=== PATIENT | male | born 1950 | race Caucasian/White ===

== ENCOUNTER → 2017-12-27 16:19 | Outpatient (CLI) | payer MEDICARE, OTHER, SELFPAY | PROVIDERS: Family Provider Family Medicine; PCP Family Medicine; Visit Provider Otolaryngology Otolaryngology/Facial Plastic Surgery | DX: J32.9 Chronic sinusitis, unspecified (principal) | CPT/HCPCS: 87070; 87077; 87186; 87205 ==

== ENCOUNTER → 2017-12-28 19:17 | Outpatient (CLI) | payer MEDICARE, OTHER, SELFPAY | PROVIDERS: Family Provider Family Medicine; PCP Family Medicine; Visit Provider Otolaryngology Otolaryngology/Facial Plastic Surgery | DX: R05 Cough (principal) | CPT/HCPCS: 87070; 87205 ==

== ENCOUNTER → 2018-01-10 16:26 | Outpatient (CLI) | payer MEDICARE, OTHER, SELFPAY | PROVIDERS: Family Provider Family Medicine; PCP Family Medicine; Visit Provider Otolaryngology Otolaryngology/Facial Plastic Surgery | DX: J32.9 Chronic sinusitis, unspecified (principal) | CPT/HCPCS: 87070; 87077; 87186; 87205 ==

== ENCOUNTER → 2018-01-18 06:50 | Outpatient (CLI) | payer MEDICARE, OTHER, SELFPAY ==
--- NOTE | 2018-01-18 06:53 | CT_ITS ---
STUDY: CT MAXILLOFACIAL SINUSES REASON FOR EXAM: Male, 67 years old. History of sinusitis. RADIATION DOSAGE (If Supplied By Facility): CTDIvol = ( 29.36 ) mGy, DLP = ( 459.30 ) mGycm TECHNIQUE: The patient was scanned in a multi detector CT scanner. High resolution axial imaging was performed without the administration of intravenous contrast material. Sagittal and coronal images were reconstructed. Individualized dose optimization techniques were used for this CT. COMPARISON: Comparison is made with prior examination dated January 23, 2014. FINDINGS: FRONTAL SINUSES: Normal aeration, without mucosal inflammatory disease. ETHMOIDAL SINUSES: Normal aeration, without mucosal inflammatory disease. MAXILLARY SINUSES: Normal aeration, without mucosal inflammatory disease. SPHENOIDAL SINUSES: Normal aeration, without mucosal inflammatory disease. There is patency of the bilateral maxillary infundibuli with normal uncinate processes, ethmoid bullae, and hiatus semilunaris. Normal bilateral middle turbinates. Normal bilateral inferior turbinates. Normal midline nasal septum. There is patency of the bilateral nasal airways. The visualized osseous structures are normal. The visualized bilateral orbital contents are normal. CT/Sinus/Facial Bone IMPRESSION: Normal CT examination of the maxillofacial sinuses. Electronically Signed: Edy Cohen MD at 15:28 EST Tel [phone], Service support ,
== END ==
PROVIDERS: Family Provider Family Medicine; PCP Family Medicine; Visit Provider Otolaryngology Otolaryngology/Facial Plastic Surgery
DX: J32.9 Chronic sinusitis, unspecified (principal)
CPT/HCPCS: 70486

== ENCOUNTER → 2018-03-02 13:07 | Outpatient (CLI) | payer MEDICARE, OTHER, SELFPAY ==
--- NOTE | 2018-03-02 13:08 | ECHOD_ITS ---
Reason For Study: CAD Procedure This was a 2D Doppler, Color Flow transthoracic echocardiogram. Exam performed in department. Left Ventricle Normal size and thickness. The estimated ejection fraction is 65 %. Septal motion consistent with IVCD. Stage 1 diastolic dysfunction. No regional wall motion abnormalities noted. Right Ventricle Normal size and thickness. Normal systolic function. Atria Normal left atrium. Normal right atrium. Normal atrial septum. Bubble contrast study negative for right to left interatrial shunt. Mitral Valve The mitral valve is structurally normal. No prolapse or stenosis seen. Tricuspid Valve Normal tricuspid valve. Trivial tricuspid valve insufficiency. Right ventricular systolic pressure estimated to be 17 mmHg. Aortic Valve Trisinus/trileaflet aortic valve. Mild focal aortic valve thickening. Mild restriction of the aortic valve. Mild aortic stenosis. Peak aortic valve gradient 23 mmHg. Mean aortic valve gradient 13 mmHg. Calculated aortic valve area (continuity equation) is 1.6 cm2. Trivial aortic valve insufficiency. Pulmonic Valve Normal pulmonic valve. Great Vessels Normal aortic root. Normal arch. Normal inferior vena cava. Inferior vena cava collapse with sniff. Pericardium/Pleural No pericardial effusion. Medication 22 gauge I.V. with prn adaptor inserted into right arm. Performed a rapid injection of agitated mix of 9 cc saline and 1cc air to assess for atrial septal defect. MMode/2D Measurements & Calculations LVIDd: 4.7 cm IVSd: 1.1 cm LVOT diam: 2.2 cm LVIDs: 3.0 cm LVPWd: 1.1 cm LVOT area: 3.9 cm2 RVDd: 3.8 cm FS: 35.7 % Ao root diam: 3.9 cm LAV(MOD-bp): 44.6 ml LA A4 area: 14.7 cm2 LAV(MOD-bp) Indexed: 22.0 ml/m2 LAV(MOD-sp2): 41.8 ml LAV(MOD-sp4): 40.7 ml RA A4 area: 14.9 cm2 Doppler Measurements & Calculations MV E max vince: 74.8 cm/sec Lat Peak E' Vince: 7.0 cm/sec Med Peak E' Vince: 4.7 cm/sec MV A max vince: 98.6 cm/sec E/E' lat: 10.7 E/E' med: 15.9 MV E/A: 0.76 Ao V2 max: 237.9 cm/sec LV V1 max: 89.9 cm/sec SV(LVOT): 87.0 ml Ao max P.7 mmHg LV V1 max P.2 mmHg Ao V2 mean: 169.5 cm/sec LV V1 mean P.6 mmHg Ao mean P.7 mmHg LV V1 mean: 58.8 cm/sec Ao V2 VTI: 50.4 cm LV V1 VTI: 22.2 cm KRYSTA(I,D): 1.7 cm2 KRYSTA(V,D): 1.5 cm2 TR max vince: 164.0 cm/sec TR max P.8 mmHg Interpretation Summary The estimated ejection fraction is 65 %. Stage 1 diastolic dysfunction. Bubble contrast study negative for right to left interatrial shunt. Trivial tricuspid valve insufficiency. Right ventricular systolic pressure estimated to be 17 mmHg. Mild aortic stenosis. Compared with echo report dated 07/29/2016, no appreciable changes noted. Ordering Physician: Boris Rothman Referring Physician: Boris Rothman Performed By: Heather Baldwin RDCS, RVT
== END ==
PROVIDERS: Family Provider Family Medicine; PCP Family Medicine; Visit Provider Internal Medicine Cardiovascular Disease
DX: I25.10 Atherosclerotic heart disease of native coronary artery without angina pectoris (principal)
CPT/HCPCS: 93306; A4216

== ENCOUNTER → 2019-04-20 10:31 | Outpatient (CLI) | payer MEDICARE, OTHER, SELFPAY ==
[2019-03-29 14:07] VITALS: BMI 27.6
--- NOTE | 2019-04-20 10:33 | STE_ITS ---
Reason For Study: S/P CABG Stress Results Protocol: Alberto Protocol Maximum Predicted HR: 150 bpm Target HR: 128 bpm % Maximum Predicted HR: 86 % DurationHeart Rate Stage (mm:ss) (bpm) BP Comment BASELINE 69 102/60 STAGE 1 3:00 86 108/60 STAGE 2 3:00 102 118/64 STAGE 3 3:00 129 128/66INCREASED SOB-BREATHING HARDER RECOVERY 72 102/70DIZZY AND LIGHTHEADED WITH STOPPING TREADMILL Stress Duration: 9:00 mm:ss Maximum Stress HR: 129 bpm Baseline Echocardiogram Findings The estimated ejection fraction is 65 %. Stress Echo Wall motion Data Resting WM Intermediate WM Stress WM Resting Wall Motion Wall Motion Stress No regional wall motion No regional wall motion abnormalities noted. abnormalities noted. EKG Data The baseline ECG displays normal sinus rhythm. The patient exercised according to the regular Alberto protocol for a total duration of 9:01. The maximum heart rate attained was 130 beats per minute. This was 86% of maximum predicted heart rate. The patient exercised into stage 4 of the Alberto protocol. During stress, there were no ST or T wave changes noted to suggest ischemia. No arrhythmias noted. No clinical angina was noted. Interpretation Summary The estimated ejection fraction is 65 %. Normal, adequate, treadmill echocardiogram. Negative for ischemia by EKG and echocardiographic criteria. No anginal symptoms noted. Appropriate blood pressure response to exercise. Average exercise capacity for age. Test terminated due to fatigue. Final LVEF is 75%. No complications. Ordering Physician: Boris Rothman Referring Physician: Boris Rothman Performed By: Micky Maria RCS
== END ==
PROVIDERS: Family Provider Family Medicine; PCP Family Medicine; Referring Provider Internal Medicine Cardiovascular Disease; Visit Provider Internal Medicine Cardiovascular Disease
DX: I25.10 Atherosclerotic heart disease of native coronary artery without angina pectoris (principal); I10 Essential (primary) hypertension; E78.5 Hyperlipidemia, unspecified; Z95.1 Presence of aortocoronary bypass graft; Z95.5 Presence of coronary angioplasty implant and graft
CPT/HCPCS: 93017; 93350

== ENCOUNTER → 2020-09-01 | Outpatient (CLI) | END | disposition home or self-care (01) | LOC: LABSPEC 15:11 | PROVIDERS: PCP Family Medicine; Visit Provider Otolaryngology Otolaryngology/Facial Plastic Surgery | DX: J32.9 Chronic sinusitis, unspecified (principal) | CPT/HCPCS: 87070; 87077; 87186; 87205 ==

== ENCOUNTER → 2020-09-04 13:21 | Outpatient (CLI) | payer MEDICARE, OTHER, SELFPAY ==
[2019-03-29 14:07] VITALS: BMI 27.6
--- NOTE | 2020-09-04 13:24 | CT_ITS ---
STUDY: CT FACIAL BONES WITHOUT CONTRAST REASON FOR EXAM: Male, 70 years old. PECULIAR ODOR IN NOSE. H/O E.COLI. RADIATION DOSAGE (If Supplied By Facility): CTDIvol = ( 33.06 ) mGy, DLP = ( 837.98 ) mGycm TECHNIQUE: The patient was scanned in a multi detector CT scanner. Sagittal and coronal images were reconstructed. Individualized dose optimization techniques were used for this CT. COMPARISON: 01/18/2018 FINDINGS: Normal soft tissue structures. Normal orbital fraire and orbital contents. Normal nasal bones and anterior nasal spine. Normal facial bones. There is no demonstrated fracture. Mucosal thickening of the anterior left ethmoid air cells consistent with sinusitis. CT/Sinus/Facial Bone IMPRESSION: Chronic left ethmoid sinusitis. Electronically Signed: Erasto Walton MD at 8:34 EDT Tel , Service support ,
== END ==
PROVIDERS: PCP Family Medicine; Referring Provider Otolaryngology Otolaryngology/Facial Plastic Surgery; Visit Provider Otolaryngology Otolaryngology/Facial Plastic Surgery
DX: J32.9 Chronic sinusitis, unspecified (principal)
CPT/HCPCS: 70486

== ENCOUNTER → 2020-10-02 | Outpatient (CLI) | payer MEDICARE, OTHER, SELFPAY ==
[2019-03-29 14:07] VITALS: BMI 27.6
== END | disposition home or self-care (01) ==
LOC: LABSPEC 15:43
PROVIDERS: PCP Family Medicine; Referring Provider Otolaryngology Otolaryngology/Facial Plastic Surgery; Visit Provider Otolaryngology Otolaryngology/Facial Plastic Surgery
DX: J32.9 Chronic sinusitis, unspecified (principal)
CPT/HCPCS: 87070; 87205